=== PATIENT | male | born 1955 | race Caucasian/White ===

== ENCOUNTER 2016-04-28 12:24 | Emergency (ER) | payer OTHER ==
[~2016-04-28 12:24] MED LIST: ASPIRIN EC81 M1 PO; CATAPRES0.1 MG PO; CLONIDINE; DIABETIC MEDS; DOCUSATE SODIU100 MG PO; GLUCOPHAGE500 M1; LEVEMIR SUBQ; LISINOPRIL; LITE COAT ASPI325 M1; METFORMIN HCL500 M1 PO; NOVOLOG100 U/ML SUBQ; OXYCODONE15 M1 PO; PERCOCET PO; SYNTHROID PO; THYROID MED; TRAMADOL HCL50 M1 PO; VOLTAREN75 MG PO; XANAX1 MG PO; ZESTRIL40 MG PO
== END 2016-04-28 13:30 | disposition home or self-care (01) ==
LOC: CFTX 12:24
DX: L02.212 Cutaneous abscess of back [any part, except buttock and flank] (principal); I10 Essential (primary) hypertension; Z91.19 Patient's noncompliance with other medical treatment and regimen; E11.9 Type 2 diabetes mellitus without complications; F41.9 Anxiety disorder, unspecified; Z90.49 Acquired absence of other specified parts of digestive tract; Z88.5 Allergy status to narcotic agent
CPT/HCPCS: 10060; 82947; 99283

== ENCOUNTER 2016-05-28 22:23 | Observation (INO) | payer OTHER ==
--- NOTE | ~2016-05-28 | EKG ---
PATIENT: PILO GARDNER UNIT #: [id number] Ventricular Rate: 101 BPM Atrial Rate: 101 BPM P-R Interval: 170 ms QRS Duration: 122 ms Q-T Interval: 360 ms QTC Calculation(Bezet): 466 ms P [place]: 50 degrees Calculated R [place]: -70 degrees Calculated T [place]: 74 degrees Diagnosis Line: Sinus tachycardia with occasional Premature Diagnosis Line: ventricular complexes Diagnosis Line: Left axis deviation Diagnosis Line: Non-specific intra-ventricular conduction delay Diagnosis Line: Abnormal ECG Diagnosis Line: No previous ECGs available Diagnosis Line: Confirmed by CLAUDIA OLIVIA MD ([id number]) on 05/29/2016 Diagnosis Line: 10:30:11 PM INTERPRETING MD: NE COOK
--- NOTE | ~2016-05-28 | HP ---
Unit #: [id number] #: [id number] Patient: PILO PEREZ [id number] [address] [place], [place] [address] [id number] MR#: [id number] NAME: PILO PEREZ. ROOM: 41499 Age: 60 Sex: M Admission Date: 05/29/2016 : 1955 Attending Physician: Nadira Conrad M.D. Primary Care Physician: Karl Ferris M.D. HISTORY AND PHYSICAL CHIEF COMPLAINT Shortness of breath. HISTORY OF PRESENT ILLNESS Mr. Perez is a 60-year-old male with a complex medical history, who presents to the ER for above. The patient was just discharged from [facility] on May 20, 2016, following cardiac arrest with successful resuscitation x3. He was found to have an NSTEMI and multisystem organ failure. He did require hemodialysis intermittently but was off hemodialysis upon discharge. Per hospital records, he was supposed to go to subacute rehab but patient states he did not feel he needed it and went home. He states he has had a cough productive of green sputum for approximately seven days but began feeling short of breath only upon awakening four to five days ago. He is not having any dyspnea on exertion. He denies any chest pain. He denies any nausea, vomiting, or diarrhea. He denies any sick contacts. He presented to the ER last night with complaints of shortness of breath. However, there has not been any noted hypoxia. Initial lactic acid level done last night was elevated at 4.5. The patient was afebrile and white blood cell count has been normal. The patient was given IV fluids and lactic acids were checked throughout the night. This morning, it is improved at 2.5 but still mildly high and patient is being referred for observation. The patient is asking me to eat. PAST MEDICAL HISTORY 1. Recent hospitalization at [place] following cardiac arrest with successful resuscitation x3. 2. Recent NSTEMI, patient did not undergo heart cath due to renal failure. Plan is to have an outpatient cath. I will note he did undergo a stress Cardiolite which was abnormal. 3. Recent bilateral probably embolic stroke. The patient had subacute left parietal infarction and subacute inferior right cerebellar infarction with petechial hemorrhage at [place]. 4. He underwent a RADHA which was unremarkable and carotid Dopplers which were also unremarkable and had an implantable loop recorder placed. 5. Diabetes mellitus type 2, uncontrolled. Hemoglobin A1c at [place] was 10.9 per records. 6. Hypertension. 7. Hyperlipidemia. 8. Chronic back pain maintained on narcotics. 9. Anxiety. 10. Hypothyroidism. 11. Gastroesophageal reflux disease. 12. Questionable seizure disorder. Unit #: [id number] #: [id number] Patient: PILO PEREZ 13. Thrombocytopenia, per records from [place]. 14. Chronic pancreatitis. 15. Obesity. PAST SURGICAL HISTORY 1. Loop recorder implantation. 2. Coronary artery bypass grafting x5. 3. Prior cholecystectomy. ALLERGIES Morphine. HOME MEDICATIONS 1. Xanax 0.5 mg t.i.d. 2. Lipitor 40 mg daily. 3. Coreg 6.25 mg b.i.d. 4. Plavix 75 mg daily. 5. Nexium 40 mg in the morning. 6. Hydralazine 10 mg p.o. q.8 hours. 7. Levemir 46 units subcutaneously at night. 8. Keppra 500 mg b.i.d. 9. Levothyroxine 125 mcg p.o. daily. 10. Magnesium oxide 400 mg daily. 11. Percocet 10/325 one tablet p.o. q.6 hours p.r.n. for pain. 12. Humalog 5 units subcutaneous t.i.d. with meals. 13. Sodium bicarbonate 650 mg daily. 14. Daily multivitamin. FAMILY HISTORY Significant for coronary artery disease and congestive heart failure. Patient's brother also has sleep apnea. I believe diabetes also runs in the family. SOCIAL HISTORY The patient states he has never smoked. He does not drink. He denies illicit drug but I will note urine drug screen here reveals marijuana. He states he is "praying a lot and trying to get his life together." REVIEW OF SYSTEMS Some cough, shortness of breath upon awakening only. No dyspnea on exertion. No new lower extremity edema. No chest pain. No sore throat. No vision changes that are acute. No constipation, diarrhea, melena, or hematochezia. Otherwise, 10-point review of systems was reviewed and is negative. PHYSICAL EXAMINATION VITAL SIGNS: Temperature 97.6, blood pressure 131/84, pulse rate 98, respiratory rate 18, oxygen saturation is 97% on room air. GENERAL: The patient is awake, alert. He is oriented x3. He is a poor historian and quite tangential. HEENT: Pupils equally round and reactive to light bilaterally. Anicteric sclerae. No conjunctival pallor. Oropharynx has moist mucous membranes. No erythema or exudate. NECK: Supple. No lymphadenopathy. No thyromegaly. No JVD. Increased neck diameter is noted. HEART: Regular rate and rhythm without murmur, rub, or gallop. LUNGS: Reveal some mild rhonchi in the bases but otherwise clear. ABDOMEN: Soft, nontender, nondistended. Positive bowel sounds. Unit #: [id number] #: [id number] Patient: PILO PEREZ EXTREMITIES: No cyanosis, clubbing, or edema. Pedal pulses 2/4. SKIN: Warm and moist without rash. NEUROLOGIC: Cranial nerves II-XII intact. Sensation, strength, and deep tendon reflexes are grossly normal. Gait was not assessed. PSYCHIATRIC: Alert and oriented x3. No suicidal, homicidal ideation but again is quite tangential. MUSCULOSKELETAL: No significant joint erythema or hypertrophy noted. DIAGNOSTIC STUDIES LABORATORY: Lab work done in the emergency department reveals a white blood cell count of 4.7, hemoglobin 9.8, platelet count 164,000 with normal MCV. Troponin has been negative x2. BMP last evening reveals a sodium of 135, potassium 2.9, chloride 105, bicarbonate 19, BUN 7, creatinine 1.6, glucose 355, calcium 7.9, albumin 2.8. LFTs are relatively normal. Initial lactic acid was 4.5, then went down to 2.3 and is now up to 2.5. UA reveals trace protein and greater than 1000 of glucose. BMP this morning reveals a potassium of 3 and continued CO2 of 19. Creatinine is 1.5. IMAGING: Chest x-ray was clear. Changes of CABG were noted. V/Q was low probability for PE. CARDIOVASCULAR: EKG reveals normal sinus rhythm with left bundle branch block. There is Q wave present in V1 through V3. There are no acute ST or T wave abnormalities. ASSESSMENT 1. Acute bronchitis. 2. Dyspnea upon awakening concerning for underlying obstructive sleep apnea. 3. Elevated lactic acid level, nonspecific. 4. Coronary artery disease, status post recent cardiopulmonary arrest with resuscitation. 5. Coronary artery disease with pending outpatient cardiac catheterization. 6. Chronic kidney disease stage 3. 7. Diabetes mellitus type 2, insulin requiring and uncontrolled. 8. Nonanion gap metabolic acidosis. 9. Hypertension. 10. Hyperlipidemia. 11. Gastroesophageal reflux disease. 12. Seizure disorder. 13. Recent stroke with implanted loop recorder. 14. Hypothyroidism. 15. Moderate protein malnutrition. 16. Hypokalemia. PLAN 1. Will place patient in observation under telemetry. 2. I will begin empiric azithromycin in regard to bronchitis. Given lack of fever, lack of white blood cell count, and normal chest x-ray, I do not feel he has underlying pneumonia and will continue to monitor clinically. 3. Will obtain overnight pulse oximetry regarding his dyspnea upon awakening only. I suspect he has underlying sleep apnea. 4. Will repeat lactic acid level in the morning but I anticipate this will be normal. Unit #: [id number] #: [id number] Patient: PILO PEREZ 5. Will recheck another troponin just to ensure these remain negative. If these do remain negative without chest pain, I think he can safely undergo cardiac catheterization as an outpatient. 6. Will continue home medications in regard to diabetes and will also provide sliding scale insulin. 7. Will followup renal function in the morning. 8. Will increase patient's sodium bicarbonate to twice daily in regard to his metabolic acidosis. 9. Continue other home medications. 10. Will replace potassium orally. 11. Deep venous thrombosis prophylaxis with Lovenox. Dictated by Nadira Conrad M.D. ARIADNE/gustavo TD: 05/29/2016 11:20 JOB #: [id number] HISTORY AND PHYSICAL Page 1 of 1 X Nadira Conrad MD HISTORY AND PHYSICAL
--- NOTE | ~2016-05-28 | NM69 ---
[facility] A Service of [facility] RADIOLOGY TEXT RESULTS PATIENT: PILO GARDNER LOCATION: [place] [address] : [birth year] UNIT #: [id number] AGE: [address]: Nadira Conrad MD SEX: M ORDER DR: [id number] [facility] [address] [place], [place] [address] [id number] MR#: [id number] Acc #: [id number] NAME: PILO GARDNER. : 1955 SEX: M STUDY DATE/TIME: 05/29/2016 4:46 UNIT: HARDEEP ROOM: STUDY DESCRIPTION: NM Pulm Vent and Perf Attending Physician: Aime Cortez M.D. Ordering Physician: Aime Cortez M.D. Primary Care Physician: Karl Ferris M.D. MEDICAL IMAGING REPORT This report is preliminary unless electronic signature is present EXAM Ventilation-perfusion scan INDICATION Shortness of air for the past 5-6 days with elevated D-dimer level. PROCEDURE Ventilation images obtained after 31 mCi technetium labeled DTPA aerosol. Perfusion images obtained after 5.3 mCi technetium labeled MAA. COMPARISON Chest x-ray 05/28/2016 FINDINGS No large ventilation-perfusion mismatch. IMPRESSION Low probability scan for pulmonary embolus. Dictated by... Lobo Santana M.D. THIS IS AN ELECTRONICALLY VERIFIED REPORT Lobo Santana M.D. at 05/29/2016 10:24 PM CONCETTAD/gumaro TD: 05/29/2016 05:16 JOB #: [id number] MEDICAL IMAGING REPORT Page 1 of 1 COPY
--- NOTE | ~2016-05-28 | CR72 ---
[facility] A Service of [facility] RADIOLOGY TEXT RESULTS PATIENT: PILO GARDNER LOCATION: [facility] 561- : [birth year] UNIT #: [id number] AGE: [address]: Nadira Conrad MD SEX: M ORDER DR: [id number] [facility] [address] [place], [place] [address] [id number] MR#: [id number] Acc #: [id number] NAME: PILO GARDNER : 1955 SEX: M STUDY DATE/TIME: 05/28/2016 23:54 UNIT: HARDEEP ROOM: STUDY DESCRIPTION: CR Chest Single View Portable Attending Physician: Aime Cortez M.D. Ordering Physician: Aime Cortez M.D. Primary Care Physician: Karl Ferris M.D. MEDICAL IMAGING REPORT This report is preliminary unless electronic signature is present EXAM Portable chest INDICATIONS Shortness of air for the past 4 days. PROCEDURE Frontal view of the chest COMPARISON 05/19/2015 FINDINGS Stable cardiomegaly, previous CABG. No dense consolidation, pleural fluid or pneumothorax. IMPRESSION No active process, stable cardiomegaly and previous CABG change. Dictated by... Lobo Santana M.D. THIS IS AN ELECTRONICALLY VERIFIED REPORT Lobo Santana M.D. at 05/29/2016 10:24 PM EED/jahaira TD: 05/29/2016 03:17 JOB #: [id number] MEDICAL IMAGING REPORT Page 1 of 1 COPY
--- NOTE | ~2016-05-28 | DS ---
Unit #: [id number] #: [id number] Patient: PILO PEREZ [id number] [address] [address] [id number] I MR#: [id number] NAME: PILO PEREZ. ROOM: 561 Age: 60 Sex: M Admission Date: 05/29/2016 : 1955 Discharge Date: 05/29/2016 Attending Physician: Nadira Conrad M.D. Primary Care Physician: Karl Ferris M.D. DISCHARGE SUMMARY PRINCIPAL DIAGNOSES 1. Acute bronchitis. 2. Elevated lactic acid level, nonspecific and now resolved. 3. Dyspnea upon awakening, likely consistent with obstructive sleep apnea. 4. Coronary artery disease. 5. Chronic kidney disease stage 3. Discharge creatinine 1.5. 6. Hypokalemia. 7. Diabetes mellitus type 2 insulin requiring and uncontrolled with associated hyperglycemia. 8. Hypertension. 9. Hyperlipidemia. 10. Non-anion gap metabolic acidosis, likely underlying renal tubular acidosis. 11. Gastroesophageal reflux disease. 12. Seizure disorder. 13. Recent stroke. 14. Hypothyroidism. 15. Moderate protein malnutrition. 16. Obesity. CONSULTANTS None. PROCEDURES Chest x-ray, which was normal. CLINICAL HISTORY AND HOSPITAL COURSE Mr. Perez is a 60-year-old male who presents to the emergency department with complaints of cough and shortness of breath. Please refer to H and P for further details. Patient upon presentation to the emergency department, did not have any fever, nor did he have any hypoxia. His dyspnea is happening only upon awakening. He has had a cough productive of green sputum. Chest x-ray in the emergency department was unremarkable and patient does not have any leukocytosis. However, a lactic acid done upon presentation was high at 4.5. He was monitored overnight and lactic acid level was decreasing but still not technically normal and he was placed in observation for evaluation. Patient was given broad spectrum antibiotics in the ER but given lack of significant fever, I have placed him only on azithromycin. This afternoon his lactic acid is technically normal at 2.1. He does not appear at all toxic. He is not having any cough now and I think he can be safely discharged home with close followup. Unit #: [id number] #: [id number] Patient: PILO PEREZ DISCHARGE CONDITION Stable. DISCHARGE STATUS Discharge to home. DISCHARGE MEDICATIONS 1. Azithromycin 250 mg p.o. daily for five days. 2. Sodium bicarbonate 650 mg p.o. b.i.d., note this is a dose increase. 3. Magnesium oxide 400 mg daily. 4. Keppra 500 mg b.i.d. 5. Xanax 0.5 mg p.o. t.i.d., no prescription given. 6. Coreg 6.25 mg p.o. b.i.d. 7. Lipitor 40 mg at bedtime. 8. A daily multivitamin. 9. Percocet 10/325 one tablet p.o. q.6 hours p.r.n. for pain. 10. Plavix 75 mg daily. 11. Nexium 40 mg daily. 12. Levothyroxine 125 mcg p.o. daily. 13. Hydralazine 10 mg p.o. t.i.d. 14. Levemir 46 units subcutaneously at nighttime. 15. NovoLog 5 units subcu t.i.d. with meals. DISCHARGE INSTRUCTIONS Patient was instructed to follow a heart healthy constant carb diet. He will continue Accu-Cheks since he was doing at home previously. He can increase activity as tolerated. FOLLOWUP Patient will followup with his primary care physician, Dr. Ferris in one week. Dictated by... Nadira Conrad M.D. ARIADNE/mahendra TD: 05/30/2016 08:22 JOB #: [id number] DISCHARGE SUMMARY Page 1 of 1 X Nadira Conrad MD X DISCHARGE SUMMARY
[2016-05-28 23:57] LABS: BASOPHIL# 0.1 X10e3 (0-0.3); BASOPHIL% 1.8 % (0-2.5); EOSINOPHIL# 0.6 X10e3 (0-0.7); EOSINOPHIL% 11.8 % (0.0-7.0); HEMATOCRIT 28.9 % (38.0-50.0); HEMOGLOBIN 9.8 gm/dL (13.0-16.0); LYMPHOCYTE# 0.9 X10e3 (1.0-3.5); LYMPHOCYTE% 19.4 % (17.0-45.0); MEAN CORPUSCULAR HEMOGLOBIN 30.7 PG (28-34); MEAN CORPUSCULAR HGB CONC 33.7 g/dL (30-36); MEAN PLATELET VOLUME 7.8 FL (6.5-11.5); MONOCYTE# 0.6 X10e3 (0-1.0); MONOCYTE% 12.8 % (3.0-12.0); NEUTROPHIL# 2.5 X10e3 (1.5-7.1); NEUTROPHIL% 54.2 % (40-75); PLATELET COUNT 164 X10e3 (140-420); RED BLOOD COUNT 3.18 X10e (3.90-5.60); WHITE BLOOD COUNT 4.7 X10e3 (4.0-10.5)
[2016-05-28 23:59] LABS: DIFF IND NO
[2016-05-29 00:12] LABS: POC - CKMB 3.6 ng/mL (0.0-7.9); POC - TROPONIN <0.05 ng/mL (<=0.05)
[2016-05-29 00:22] LABS: ALBUMIN SERUM 2.8 g/dL (3.5-5.0); ALKALINE PHOSPHATASE 153 U/L (32-92); ALT (SGPT) 20 U/L (10-40); AST (SGOT) 24 U/L (10-42); BILIRUBIN,TOTAL 0.5 mg/dL (0.2-2.0); BLOOD UREA NITROGEN 7 mg/dL (9-23); BUN/CREATININE RATIO 4.37; CALCIUM SERUM 7.9 mg/dL (8.4-10.2); CARBON DIOXIDE 19 mmol/L (22-31); CHLORIDE 105 mmol/L (100-111); CREATININE SERUM 1.6 mg/dL (0.6-1.4); GLOM FILT RATE Estimated 45.8 mL/min (>60); GLUCOSE FASTING 355 mg/dL (70-110); PROTEIN TOTAL SERUM 6.3 g/dL (6.0-8.3); SODIUM 135 mmol/L (135-145)
[2016-05-29 00:23] LABS: BILIRUBIN, DIRECT <0.1 mg/dL (0.0-0.2); BILIRUBIN,INDIRECT 0.4 mg/dL (0.0-0.9); POTASSIUM 2.9 mmol/L (3.5-5.1)
[2016-05-29 01:52] LABS: URINE SOURCE CLEAN CATCH
[2016-05-29 01:55] LABS: URINE APPEARANCE CLEAR; URINE BILIRUBIN NEG (NEG); URINE BLOOD NEG (NEG); URINE COLOR YELLOW; URINE GLUCOSE >1000 MG/DL (NEG); URINE KETONE NEG (NEG); URINE LEUKOCYTE ESTERASE NEG (NEG); URINE NITRATE NEG (NEG); URINE PH 6.5 (5-8); URINE PROTEIN TRACE (NEG); URINE SPECIFIC GRAVITY 1.015 (1.003-1.035); URINE UROBILINOGEN 0.2 MG/DL (NEG)
[2016-05-29 01:58] LABS: CULTURE INDICATED? NO
[2016-05-29 02:00] LABS: POC - TROPONIN <0.05 ng/mL (<=0.05)
[2016-05-29 05:05] LABS: AMPHETAMINE NEG (NEG); BARBITURATES NEG (NEG); BENZODIAZEPINES NEG (NEG); COCAINE NEG (NEG); MARIJUANA POS (NEG); OPIATES NEG (NEG); TRICYCLIC ANTIDEPRESSANTS NEG (NEG); U METHADONE NEG (NEG)
[2016-05-29] MEDS ORDERED: XANAX0.5 M1 PO (05:32)
[2016-05-29] MEDS ORDERED: LIPITOR40 MG PO (05:32)
[2016-05-29] MEDS ORDERED: COREG6.25 MG PO (05:33)
[2016-05-29] MEDS ORDERED: CLOPIDOGREL75 MG PO (05:33)
[2016-05-29] MEDS ORDERED: NEXIUM PO (05:34)
[2016-05-29] MEDS ORDERED: APRESOLINE10 M1 PO (05:34)
[2016-05-29] MEDS ORDERED: KEPPRA500 M1 PO (05:35)
[2016-05-29] MEDS ORDERED: SYNTHROID125 PO (05:35)
[2016-05-29] MEDS ORDERED: LEVEMIR100 UNITS/ SUBQ (05:35)
[2016-05-29] MEDS ORDERED: MAG-OX 400400 M1 PO (05:36)
[2016-05-29] MEDS ORDERED: PERCOCET 10/3251 TAB PO (05:36)
[2016-05-29] MEDS ORDERED: SODIUM BICARBO650 MG PO ×2 (05:37→14:22)
[2016-05-29] MEDS ORDERED: HUMALOG100 U/M1 SUBQ (05:37)
[2016-05-29] MEDS ORDERED: VITAMIN AND MIN PO (05:37)
[2016-05-29 07:11] LABS: BUN/CREATININE RATIO 4.66; CALCIUM SERUM 7.6 mg/dL (8.4-10.2); CREATININE SERUM 1.5 mg/dL (0.6-1.4); GLOM FILT RATE Estimated 49.6 mL/min (>60)
[2016-05-29] MEDS ORDERED: MULTI-VITAMIN1 EAC1 PO (13:10)
[2016-05-29] MEDS ORDERED: NOVOLOG100 U/ML SUBQ (13:17)
[2016-05-29] MEDS ORDERED: PERCOCET PO (13:26)
[2016-05-29] MEDS ORDERED: XANAX1 MG PO (13:27)
[2016-05-29] MEDS ORDERED: ZESTRIL40 MG PO (13:30)
[2016-05-29] MEDS ORDERED: AZITHROMYCIN250 MG PO (15:04)
[2016-05-29] MEDS ORDERED: XANAX0.5 MG PO (15:11)
== END 2016-05-29 15:45 | disposition home or self-care (01) ==
LOC: CED 22:23 → CEDOF 05-29 08:20 → C5B 05-29 12:32
PROVIDERS: Emergency Medicine
DX: J20.9 Acute bronchitis, unspecified (principal); R06.00 Dyspnea, unspecified; I25.10 Atherosclerotic heart disease of native coronary artery without angina pectoris; E11.65 Type 2 diabetes mellitus with hyperglycemia; E11.22 Type 2 diabetes mellitus with diabetic chronic kidney disease; I12.9 Hypertensive chronic kidney disease with stage 1 through stage 4 chronic kidney disease, or unspecified chronic kidney disease; N18.3 Chronic kidney disease, stage 3 (moderate); Z79.4 Long term (current) use of insulin; E87.6 Hypokalemia; R74.0 Nonspecific elevation of levels of transaminase and lactic acid dehydrogenase [LDH]; E78.5 Hyperlipidemia, unspecified; E87.2 Acidosis; K21.9 Gastro-esophageal reflux disease without esophagitis; G40.909 Epilepsy, unspecified, not intractable, without status epilepticus; E03.9 Hypothyroidism, unspecified; E44.0 Moderate protein-calorie malnutrition; E66.9 Obesity, unspecified; Z79.02 Long term (current) use of antithrombotics/antiplatelets; Z86.73 Personal history of transient ischemic attack (TIA), and cerebral infarction without residual deficits; I25.2 Old myocardial infarction; Z95.1 Presence of aortocoronary bypass graft; Z90.49 Acquired absence of other specified parts of digestive tract; Z82.49 Family history of ischemic heart disease and other diseases of the circulatory system
CPT/HCPCS: 36415; 71010; 78582; 80048; 80076; 80307; 81003; 82553; 82947; 83605; 84484; 85025; 85379; 87040; 93005; 96360; 96361; 96372; 96374; 96375; 99285; A9540; A9567; G0378; J0456; J1170; J1650; J1815; J2543; J3260; J3370

== ENCOUNTER 2016-07-09 17:35 | Emergency (ER) | payer OTHER ==
[~2016-07-09 17:35] MED LIST changes: +APRESOLINE10 M1 PO; +AZITHROMYCIN250 MG PO; +CLOPIDOGREL75 MG PO; +COREG6.25 MG PO; +HUMALOG100 U/M1 SUBQ; +KEPPRA500 M1 PO; +LEVEMIR100 UNITS/ SUBQ; +LIPITOR40 MG PO; +MAG-OX 400400 M1 PO; +MULTI-VITAMIN1 EAC1 PO; +NEXIUM PO; +PERCOCET 10/3251 TAB PO; +SODIUM BICARBO650 MG PO; +SYNTHROID125 PO; +VITAMIN AND MIN PO; +XANAX0.5 M1 PO; +XANAX0.5 MG PO
== END 2016-07-09 19:18 | disposition left against medical advice (07) ==
LOC: CED 17:35
DX: R06.02 Shortness of breath (principal); M79.606 Pain in leg, unspecified; I25.10 Atherosclerotic heart disease of native coronary artery without angina pectoris; E11.9 Type 2 diabetes mellitus without complications; F41.9 Anxiety disorder, unspecified; I25.2 Old myocardial infarction; Z86.711 Personal history of pulmonary embolism; Z88.5 Allergy status to narcotic agent; Z79.01 Long term (current) use of anticoagulants; Z79.899 Other long term (current) drug therapy; Z79.4 Long term (current) use of insulin
CPT/HCPCS: 99282; 99283

== ENCOUNTER 2016-08-15 16:35 | Emergency (ER) | payer OTHER | END 2016-08-15 18:00 | disposition home or self-care (01) | LOC: SED 16:35 | DX: G62.9 Polyneuropathy, unspecified (principal) | CPT/HCPCS: 99281 ==